=== PATIENT | male | born 1965 | race Caucasian/White ===

== ENCOUNTER → 2018-07-04 | Outpatient (CLI) | payer OTHER ==
--- NOTE | 2018-07-05 08:57 | MR ---
EXAMINATION TYPE: MR shoulder RT wo con DATE OF EXAM: 07/04/2018 COMPARISON: X-ray 06/19/2018 HISTORY: Right shoulder pain TECHNIQUE: Multiplanar, multisequence imaging of the right shoulder is performed without contrast. FINDINGS: Rotator Cuff: There is diffuse abnormal signal through the distal margin of the supraspinatus tendon compatible with diffuse tendinosis. There is a through thickness partial tear measuring 7.5 mm involv ing the anterior fibers. Infraspinatus tendon demonstrates increased signal at its insertion compatible tendinosis and partial intrasubstance tear. No retraction. Subscapularis has a normal appearance. Acromioclavicular Joint: Hypertrophic change of the AC joint compatible with severe arthropathy. Ther e is no mass effect upon the rotator cuff tendons. Glenohumeral Joint: Joint space appears preserved. No sizable joint effusion. Glenohumeral ligaments intact. Labrum: There is truncation anterior superior labrum suspicious for tear. Biceps Tendon: The long head of biceps is in normal location within bicipital groove. Bone marrow signal: No focal abnormal marrow signal is appreciated. IMPRESSION: 1. There is diffuse tendinosis of the supraspinatus and infraspinatus tendons with a partial through thickness tear measuring 7.5 mm involving the anterior fibers of the supraspinatus tendon. No retract ion. 2. At the level of the insertion of the infraspinatus tendon there is diffuse abnormal insertion armando g its anterior fibers compatible with tendinosis and partial intrasubstance tear with no retraction. 3. Arthropathy of the AC joints but no mass effect upon the rotator cuff. 4. Findings suspicious for anterior superior labral tear.
== END ==
LOC: RADMRIMAIN 18:22
PROVIDERS: ATTEND Orthopaedic Surgery
DX: S46.911A Strain of unspecified muscle, fascia and tendon at shoulder and upper arm level, right arm, initial encounter (principal); M75.81 Other shoulder lesions, right shoulder; M19.011 Primary osteoarthritis, right shoulder

== ENCOUNTER → 2018-10-12 | Outpatient (CLI) | payer OTHER ==
[2018-10-12 13:55] LABS: Potassium 3.7 mmol/L (3.5-5.1)
[2018-10-12 14:01] LABS: Basophils # (A) 0.1 k/uL (0-0.2); Basophils % (A) 1 %; Eosinophils # (A) 0.3 k/uL (0-0.7); Eosinophils % (A) 4 %; HCT 52.4 % (39.0-53.0); HGB 16.8 gm/dL (13.0-17.5); Lymphocytes # (A) 2.3 k/uL (1.0-4.8); Lymphocytes % (A) 41 %; MCH 27.7 pg (25.0-35.0); MCV 86.6 fL (80.0-100.0); Mean Platelet Volume 6.6; Monocytes # (A) 0.4 k/uL (0-1.0); Monocytes % (A) 7 %; Neutrophils # (A) 2.6 k/uL (1.3-7.7); Neutrophils % (A) 45 %; Platelet Count 237 k/uL (150-450); RBC 6.05 m/uL (4.30-5.90); RDW 13.2 % (11.5-15.5); WBC 5.7 k/uL (3.8-10.6)
== END | disposition home or self-care (01) ==
LOC: LABPAT 13:12
PROVIDERS: ATTEND Orthopaedic Surgery
DX: Z01.818 Encounter for other preprocedural examination (principal); Z01.812 Encounter for preprocedural laboratory examination; M75.41 Impingement syndrome of right shoulder
CPT/HCPCS: 36415; 80051; 85025; 93005

== ENCOUNTER 2018-11-09 07:30 | Day surgery (SDC) | payer OTHER ==
[2018-10-28 14:52] VITALS: BMI 28.0
--- NOTE | 2018-11-08 13:29 | HP ---
HISTORY AND PHYSICAL Surgery is 11/09/2018 Kosta Kendall is a 53-year-old patient seen with progressive right shoulder pain. After treatment options were discussed, he elected to proceed with arthroscopy. Consent was obtained. PAST MEDICAL HISTORY: His past medical history is hyperlipidemia, hypertension. PAST SURGICAL HISTORY: None. ALLERGIES: None reported. SOCIAL HISTORY: Denies current tobacco use. PHYSICAL EXAMINATION: Physical evaluation right shoulder: Flexion 160 degrees, abduction 150 degrees, external rotation is 40 degrees with pain and weakness. Tenderness along the anterolateral acromion and rotator cuff insertion site. Impingement signs positive at 80 degrees. Drop-arm sign is positive. Distal neurovascular exam is intact. Radiographs of the right shoulder revealed a type 2 anterior acromion, evidence for acromioclavicular joint osteoarthritis and cystic changes of the tuberosity. A right shoulder MRI revealed rotator cuff tear, acromioclavicular joint osteoarthritis and labral tear. IMPRESSION: 1. Right shoulder impingement with rotator cuff tear. 2. Right shoulder acromioclavicular joint osteoarthritis. PLAN: Right shoulder arthroscopy, subacromial decompression, possible arthroscopic rotator cuff repair, probable Philip procedure and debridement. MMODL / IJN: [id number] /
[~2018-11-09 07:30] MED LIST: DEXAMETHASONE SOD PHOSPHATE 10 MG/ML 1 ML VIAL IV ONE; HYDROmorphone 0.5 MG/0.5 ML SYRINGE IVP PRN; LACTATED RINGERS 1,000 ML IV SCH; LIDOCAINE 1% 20 ML VIAL (10MG/ML) FOR IV START INTRADERMA PRN; ONDANSETRON 4 MG/2 ML VIAL IVP ONE; SCOPOLAMINE 1.5MG/72HR PATCH TRANSDERM ONE; ceFAZolin IN SWFI 2 GM/20 ML SYRINGE IVP ONE
[2018-11-09] MEDS ORDERED: LACTATED RINGERS 1,000 ML IV ONE ×2 (07:47→11:25)
[2018-11-09] MEDS ORDERED: fentaNYL (PF) 50 MCG/ML 2 ML AMP IVP ONE (08:19)
[2018-11-09] MEDS ORDERED: MIDAZOLAM 2 MG/2 ML VIAL IVP ONE (08:19)
[2018-11-09] MEDS ORDERED: fentaNYL (PF) 50 MCG/ML 2 ML AMP ONE (09:23)
[2018-11-09] MEDS ORDERED: LIDOCAINE 1% INJ 10MG/ML (20 ML MDV) ONE (09:23)
[2018-11-09] MEDS ORDERED: MIDAZOLAM 2 MG/2 ML VIAL ONE (09:23)
[2018-11-09] MEDS ORDERED: NEOSTIGMINE 1 MG/ML 10 ML VIAL ONE (09:23)
[2018-11-09] MEDS ORDERED: PROPOFOL 10 MG/ML 20 ML VIAL IV ONE (09:23)
[2018-11-09] MEDS ORDERED: SUCCINYLCHOLINE CHLORIDE 100 MG/5 ML SYR IV ONE (09:23)
[2018-11-09] MEDS ORDERED: GLYCOPYRROLATE 0.2 MG/ML 2 ML VIAL ONE (09:23)
[2018-11-09] MEDS ORDERED: ROPIVACAINE 5 MG/ML 30 ML VIAL ONE (09:23)
[2018-11-09] MEDS ORDERED: ROCURONIUM BROMIDE 10 MG/ML 10 ML VIAL IV ONE (09:23)
[2018-11-09] MEDS ORDERED: ePHEDrine SULFATE/0.9% NACL/PF 50 MG/5 ML SYRINGE IV ONE (09:23)
--- NOTE | 2018-11-09 09:39 | P.ONQ ---
Anesthesiology Proc Note - PNB - Peripheral Nerve Block Performed Right Interscalene Single Time Out Performed: Yes (801) Procedure Start Time: 08:02 Procedure Stop Time: 08:04 Indication: Acute Post-Operative Pain, Dx/Pain Location (Right shoulder pain), Requested by physician Sedation Type: Sedate with meaningful contact maintained Preparation: Sterile Dressing Catheter: None Needle Types: Touhy Needle Size: 50mm (2") Needle Gauge: 21 Injectate: 0.5% Ropivacaine (see comment for volume) (20ml and 4mg Decadron) Adjunct: Epinephrine (see comment for dilution ratio) Blood Aspirated: No Pain Paresthesia on Injection Noted: No Resistance on Injection: Normal Events: Uneventful and Well Tolerated
[2018-11-09 11:39] VITALS: TEMP 97
--- NOTE | 2018-11-09 11:40 | P.OP ---
Date of Procedure: 11/09/18 Preoperative Diagnosis: Right shoulder impingement Postoperative Diagnosis: 1. Right shoulder rotator cuff tear 2. Right shoulder impingement 3. Right shoulder acromioclavicular joint osteoarthritis 4. Right shoulder partial long head biceps tendon tear 5. 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 Right shoulder arthroscopic rotator cuff repair 2. Right shoulder arthroscopic subacromial decompression 3. Right shoulder arthroscopic Philip procedure 4. Right shoulder arthroscopic biceps tenotomy 5. Right shoulder chondroplasty glenoid fossa Anesthesia: GETA, regional (Interscalene block) Surgeon: Omero Mccloud Stick Feeder #1: Hugo Elam Estimated Blood Loss (ml): 10 Pathology: none sent Condition: stable Disposition: PACU Indications for Procedure: 53-year-old patient seen with progressive right shoulder pain. After treatment options were discussed, he elected to proceed with arthroscopy. Operative Findings: See description of procedure Description of Procedure: Patient underwent an interscalene block by department of anesthesia for postoperative pain management. The patient was then taken to the operative suite. The patient underwent a general anesthetic by the department of anesthesia. The patient was placed into a lateral position and secured. There was appropriate padding of the bony prominence. Right shoulder was then prepped and draped in normal sterile orthopedic fashion. We placed the extremity in 10 pounds of longitudinal traction. A posterior incision was now made for a posterior working portal site. The trocar and cannula were inserted into the glenohumeral joint. Arthroscopy was initiated. Spinal needle was now inserted anteriorly, to ascertain the anterior working portal site. An incision was now made in that area, a trocar was inserted followed by a probe. There were grade 1/2 chondromalacia changes of the central portion lentoid fossa. There was hyperemia and partial tearing long head biceps tendon. There was no obvious large rotator cuff tear visualized from glenohumeral side. There was mild superficial fraying of the superior labrum. I performed an arthroscopic biceps tenotomy. I debrided that superficial labral tear down to stable tissue. The residual labrum appeared stable. Instruments now removed from glenohumeral joint. Utilizing the posterior working portal site, the trocar and cannula were inserted into the subacromial space. Arthroscopy initiated. I made an incision 2 fingerbreadths lateral to the acromion. I introduced my trocar followed by my [employer] ablator. I now began ablating thick subacromial bursal tissue, which exposed the undersurface of the anterior acromion. There was diminished subacromial space. There was a very prominent anterior acromion. A motorized bur was introduced and a subacromial decompression was performed. I also excised some osteophytes off the inferior aspect of the distal clavicle. The AC joint was visualized and noted to be fairly arthritic. The motorized bur was introduced in the anterior portal site and a Philip procedure was performed without difficulty, decompressing the AC joint nicely. I turned my attention to the rotator cuff. There was a 3.5 cm intrasubstance tear involving what appeared to be the entire supraspinatus tendon. I debrided the margins getting down to stable tendon tissue. I now with the assistance of Livan ROLON began passing sutures for an intrasubstance repair. I used 6 sutures spanning the entire length of the intrasubstance tear. I now began sewing the intrasubstance tear together arthroscopically. Suture limbs were clipped. We had a good stable side to side repair of the entire large intrasubstance tear. Instruments now removed from the portal sites. All portal sites were approximated with nylon suture. Sterile dressings were applied followed by a shoulder immobilizer. Hugo ROLON assisted in this complex case. The patient was awakened, transferred to a bed, and taken to recovery in stable condition.
[2018-11-09 11:47] VITALS: RESP 16
[2018-11-09 13:17] VITALS: BP 127/68; PULSE 75
== END 2018-11-09 13:44 | disposition home or self-care (01) ==
LOC: OR 07:30
PROVIDERS: ATTEND Orthopaedic Surgery
DX: M75.101 Unspecified rotator cuff tear or rupture of right shoulder, not specified as traumatic (principal); M25.811 Other specified joint disorders, right shoulder; M19.011 Primary osteoarthritis, right shoulder; S46.111A Strain of muscle, fascia and tendon of long head of biceps, right arm, initial encounter; M94.211 Chondromalacia, right shoulder; S43.491A Other sprain of right shoulder joint, initial encounter; I10 Essential (primary) hypertension; E78.5 Hyperlipidemia, unspecified; F41.9 Anxiety disorder, unspecified; Z79.899 Other long term (current) drug therapy
CPT/HCPCS: 29827; 29826; 29824; 29823; 64415; C1713; J2250; J1100; J2710; J2405; J2001; J3010; J2795; J0330; J2704; J0690